=== PATIENT | male | born 1955 | race Caucasian/White ===

== ENCOUNTER → 2018-05-28 12:50 | Outpatient (CLI) | payer OTHER, MEDICAID, SELFPAY ==
[2018-05-28 14:02] LABS: Add Manual Diff / Slide Review NO; Basophils Percent Auto 0.7 % (0-2); Eosinophils Percent Auto 1.6 % (2-4); Hematocrit 53.1 % (41-53); Hemoglobin 17.9 g/dL (13.5-17.5); Mean Corpuscular HGB Conc 33.6 % (30-36); Mean Corpuscular Hemoglobin 34.5 PG (26-34); Mean Corpuscular Volume 102.6 fL (80-100); Neutrophils Absolute Auto 5300 /uL (3000-5900); Neutrophils Percent Auto 60.7 % (50-75); Platelet Count 201 X10^3/uL (150-400); Red Blood Cell Count 5.17 X10^6/uL (4.5-5.9); Red Cell Distribution Width 13.8 % (11.6-14.8); White Blood Cell Count 8.8 X10^3/uL (4.5-11.0)
[2018-05-28 14:22] LABS: Alanine Aminotransferase 25 IU/L (21-72); Albumin Globulin Ratio 1.6 (1.0-2.8); Alkaline Phosphatase 73 U/L (38-126); Amylase 63 U/L (30-110); Aspartate Aminotransferase 29 IU/L (17-59); Bilirubin Total 0.9 mg/dL (0.2-1.3); Blood Urea Nitrogen 12 mg/dL (9-20); Calcium 9.8 mg/dL (8.4-10.2); Carbon Dioxide 16 mmol/L (22-32); Chloride 105 mmol/L (98-107); Cholesterol 202 mg/dL (140-199); Estimated Glomerular Filt Rate > 60.0 mL/min (>60); Globulin 3.1 g/dL (1.7-4.1); Glucose 68 mg/dL (80-110); HDL Cholesterol 89 mg/dL (40-60); HEMOLYSIS < 15 (0-50); LDL Cholesterol Calculated 95 mg/dL (<100); Lipase 119 U/L (23-300); Potassium 4.9 mmol/L (3.4-5.1); Sodium 141 mmol/L (137-145); Total Protein 8.1 g/dL (6.3-8.2); Triglycerides 88 mg/dL (35-150)
[2018-05-28 14:51] LABS: Thyroid Stimulating Hormone 0.88 uIU/mL (0.47-4.68)
[2018-05-28 14:52] LABS: Prostate Specific Antigen Scrn 1.19 ng/mL (0.1-4.0)
[2018-05-28 14:57] LABS: Appearance Urine UA CLEAR; Bilirubin Urine UA 1+ (NEGATIVE); Color Urine UA YELLOW; Glucose Urine UA NEGATIVE (Normal); Ketones Urine UA 1+ (NEGATIVE); Leukocyte Esterase Urine UA NEGATIVE (NEGATIVE); Nitrite Urine UA Negative (Negative); Occult Blood Urine UA NEGATIVE (Negative); Protein Urine UA TRACE (Negative); Specific Gravity Urine UA >=1.030 (1.000-1.035); Urobilinogen Urine UA 0.2 E.U./dL (0.2)
[2018-05-28 16:33] LABS: Ictotest Urine Negative (Negative)
== END ==
PROVIDERS: Family Provider Physician Assistant; Visit Provider Family Medicine
DX: I10 Essential (primary) hypertension (principal); R63.4 Abnormal weight loss; Z86.73 Personal history of transient ischemic attack (TIA), and cerebral infarction without residual deficits; Z51.81 Encounter for therapeutic drug level monitoring; Z12.5 Encounter for screening for malignant neoplasm of prostate
CPT/HCPCS: 36415; 80053; 80061; 81003; 82150; 83690; 84443; 85025; G0103

== ENCOUNTER → 2018-08-19 12:50 | Outpatient (CLI) | payer OTHER, MEDICAID, SELFPAY ==
--- NOTE | 2018-08-19 12:54 | DI.RAD.S_ITS ---
PROCEDURE: XR SHOULDER RT MIN 2V INDICATIONS: R shoulder pain TECHNIQUE: 3 views of the shoulder were acquired. COMPARISON: None. FINDINGS: Bones: No fractures or dislocations. No suspicious bony lesions. Visualized ribs appear intact. Severe AC joint degeneration. Glenohumeral subchondral sclerosis and spurring Soft tissues: No suspicious soft tissue calcifications. IMPRESSION: Right shoulder joint degeneration as above. Dictated by: Corwin Funk M.D. on 08/19/2018 at 16:37 Approved by: Corwin Funk M.D. on 08/19/2018 at 16:38
--- NOTE | 2018-08-19 12:54 | DI.RAD.S_ITS ---
PROCEDURE: XR CHEST 2V INDICATIONS: Pneumonia TECHNIQUE: 2 views of the chest were acquired. COMPARISON: [facility], , CHEST 1 VIEW, 06/23/2016, 16:53. FINDINGS: Surgical changes and devices: None. Lungs and pleura: No pleural effusions or pneumothorax. No definite acute consolidation although the lateral view there is lower lobe opacity, unclear if this represents superimposition of shadows versus bronchopneumonia Mediastinum: Mediastinal contours are normal. Heart size is normal. Bones and chest wall: No suspicious bony abnormalities. Soft tissues appear unremarkable. IMPRESSION: Small opacity projecting in the posterior lower lobe on the lateral view only. This could represent superimposition of shadows however cannot exclude small focus of bronchopneumonia. Followup 2 view chest radiographs after treatment could be performed if clinically indicated. Dictated by: Corwin Funk M.D. on 08/19/2018 at 15:35 Approved by: Corwin Funk M.D. on 08/19/2018 at 15:39
--- NOTE | 2018-08-19 12:54 | DI.RAD.S_ITS ---
PROCEDURE: XR HIP W PEL IF DONE RT 2V INDICATIONS: r hip pain TECHNIQUE: AP pelvis with lateral view(s) of the left and right hip(s). COMPARISON: None. FINDINGS: Bones: No fractures or dislocations. Pelvic ring appears intact. No suspicious bony lesions. Bilateral mild hip degeneration. Soft tissues: The visualized bowel gas pattern is normal. No suspicious soft tissue calcifications. IMPRESSION: Mild bilateral hip joint degeneration. Dictated by: Corwin Funk M.D. on 08/19/2018 at 15:33 Approved by: Corwin Funk M.D. on 08/19/2018 at 15:34
== END ==
PROVIDERS: Family Provider Physician Assistant; PCP Family Medicine; Visit Provider Family Medicine
DX: J18.9 Pneumonia, unspecified organism (principal); M16.0 Bilateral primary osteoarthritis of hip; M19.011 Primary osteoarthritis, right shoulder; M25.511 Pain in right shoulder; M25.551 Pain in right hip; F17.200 Nicotine dependence, unspecified, uncomplicated
CPT/HCPCS: 71046; 73030; 73502

== ENCOUNTER 2018-11-21 15:02 | Emergency (ER) | payer OTHER, MEDICAID, SELFPAY ==
[2018-11-21] VITALS (9 sets, daily range): BP systolic 152–219; BP diastolic 94–103; PULSE 79–91; RESP 15–22; TEMP 37.1; O2SAT 97–100
--- NOTE | 2018-11-21 15:09 | ED.URI ---
HPI - URI/Sore Throat General Chief Complaint: Upper Respiratory Symptoms Stated Complaint: SOB, cough, feels like drowning when laying down Time Seen by Provider: 11/21/18 15:09 Source: patient Mode of arrival: ambulatory Limitations: no limitations History of Present Illness HPI Narrative: Patient is a 63-year-old male with known coronary artery disease here for evaluation of several months of progressively worsening shortness of breath. He states that he feels like he is drowning when he is lying flat. Does have sinus congestion. Some sore throat. No chest pain. Does state that he has swelling in his feet. States he does get short of breath when walking out to the mailbox. Cannot lay flat at night. Related Data Home Medications Medication Instructions Recorded Confirmed aspirin 81 mg tablet,delayed 81 mg PO DAILY 04/20/18 04/20/18 release nicotine 7 mg/24 hr daily 1 patch TRANSDERMAL Q24H 04/20/18 04/20/18 transdermal patch nitroglycerin 0.4 mg sublingual 0.4 mg SL Q5-15M PRN 04/20/18 04/20/18 tablet zolpidem 5 mg tablet 5 mg PO BEDTIME PRN 04/20/18 04/20/18 Previous Rx's Medication Instructions Recorded famotidine 20 mg tablet 20 mg PO DAILY #30 tab 04/20/18 isosorbide dinitrate 30 mg tablet 30 mg PO DAILY #30 tab 04/20/18 metoprolol succinate ER 25 mg 25 mg PO DAILY #30 tab 04/20/18 tablet,extended release 24 hr sucralfate 1 gram tablet 1 gram PO BID #60 tab 04/20/18 Allergies Allergy/AdvReac Type Severity Reaction Status Date / Time NSAIDS (Non-Steroidal Allergy Severe Liver Verified 04/20/18 15:30 Anti-Inflamma damage [NSAIDS (NON-STEROIDAL ANTI-INFLAMMA] Review of Systems Constitutional Denies fever(s) Cardiovascular Denies chest pain, Denies irregular heart rhythm, Reports dyspnea and Reports dyspnea on exertion Respiratory Reports dyspnea, Reports dyspnea on exertion and Denies wheezing Gastrointestinal Gastrointestinal: Denies abdominal pain, Denies nausea and Denies vomiting Musculoskeletal Denies abnormal gait and Denies myalgias Integumentary/Breasts Denies rash Neurologic Denies abnormal gait Hematologic/Lymphatic Comments: Not on anticoagulation Allergic/Immunologic Denies wheezing PFSH Medical History Chronic back pain (Chronic 1990) Hepatitis C (Chronic 1990) PTSD (post-traumatic stress disorder) (Chronic 2000) Ankle pain (Resolved 2000) Fractures (Resolved 1999) Measles (Resolved 1959) Shoulder pain (Resolved 1990) Stroke (Resolved 1993) Surgical History Hx of knee surgery (Resolved ~1989) Family History Father No problems noted. Mother No problems noted. Social History Smoking Status: Current every day smoker Tobacco: How many years used: 50 alcohol intake: current (4 beers per week) Exam Initial Vital Signs Initial Vital Signs: Vital Signs Temperature 98.8 F 11/21/18 15:06 Pulse Rate 88 11/21/18 15:06 Respiratory Rate 22 11/21/18 15:06 Blood Pressure 219/97 H 11/21/18 15:06 Pulse Oximetry 97 11/21/18 15:06 Const General: cooperative, comfortable, well developed, well groomed and No acute distress Orientation: alert, awake and oriented x3 HENMT Head: normal to inspection and normocephalic Resp Effort & Inspection: normal respiratory effort Auscultation: clear to auscultation bilaterally Cardio Rate: regular rate Rhythm: regular rhythm Pulses: radial pulses present GI Inspection: non-distended Palpation: soft, No firm and No tender Skin Lesions: no lesions Rashes: no rashes Neuro General: alert, awake and oriented x3 Extrem General: No no pedal edema and No edema Psych Appearance: grossly normal and well kempt Course Orders Ordered: ED Orders 11/21/18 15:10 XR chest 1V Stat 11/21/18 15:19 EKG-12 Lead Stat 11/21/18 15:42 B Type Natriuretic Peptide Stat Complete Blood Count AUTO DIFF Stat Comprehensive Metabolic Panel Stat Lipase Stat Troponin I Stat 11/21/18 16:46 CT chest w con Stat Sodium Chloride (Normal Saline 0.9%) 500 mls @ 500 mls/hr IV BOLUS ONE Stop: 11/21/18 17:45 Last Admin: 11/21/18 17:08 Dose: 500 mls/hr Vital Signs - 8 hr 11/21/18 15:06 11/21/18 15:30 11/21/18 16:00 Temperature 98.8 F Pulse Rate 88 85 90 Respiratory Rate 22 20 20 Blood Pressure 219/97 H Blood Pressure [Left Arm] 194/99 H 152/103 H Pulse Oximetry 97 100 100 11/21/18 17:27 Temperature Pulse Rate 79 Respiratory Rate 15 Blood Pressure Blood Pressure [Left Arm] 178/94 H Pulse Oximetry 100 MDM - URI/Sore Throat Lab Data Attestation: I reviewed the patient's lab results. Result diagrams: 11/21/18 15:42 11/21/18 15:42 Lab Results 11/21/18 11/21/18 Range/Units 15:42 15:42 WBC 5.5 (4.5-11.0) X10^3/uL RBC 4.60 (4.5-5.9) X10^6/uL Hgb 16.3 (13.5-17.5) g/dL Hct 45.9 (41-53) % MCV 99.8 (80-100) fL MCH 35.4 H (26-34) PG MCHC 35.4 (30-36) % RDW 13.5 (11.6-14.8) % Plt Count 172 (150-400) X10^3/uL Neut % (Auto) 68.2 (50-75) % Lymph % (Auto) 20.1 L (25-40) % [place] % (Auto) 10.2 (3-14) % Eos % (Auto) 1.0 L (2-4) % Baso % (Auto) 0.5 (0-2) % Neut # (Auto) 3700 (7098-7984) /uL Lymph # (Auto) 1100 (1577-5223) /uL [place] # (Auto) 600 (0-900) /uL Eos # (Auto) 100 (0-450) /uL Baso # (Auto) 0 (0-100) /uL Sodium 136 L (137-145) mmol/L Potassium 4.1 (3.4-5.1) mmol/L Chloride 102 (98-107) mmol/L Carbon Dioxide 20 L (22-32) mmol/L BUN 11 (9-20) mg/dL Creatinine 0.70 (0.66-1.25) mg/dL Estimated GFR > 60.0 (>60) mL/min BUN/Creatinine Ratio 15.7 (6-22) Glucose 107 (80-110) mg/dL Calcium 9.7 (8.4-10.2) mg/dL Total Bilirubin 1.0 (0.2-1.3) mg/dL AST 27 (17-59) IU/L ALT 24 (21-72) IU/L Alkaline Phosphatase 71 (38-126) U/L Troponin I < 0.012 (0.01-0.034) ng/mL B-Natriuretic Peptide < 100 (<100) Total Protein 8.4 H (6.3-8.2) g/dL Albumin 4.8 (3.5-5.0) g/dL Globulin 3.6 (1.7-4.1) g/dL Albumin/Globulin Ratio 1.3 (1.0-2.8) Lipase 153 (23-300) U/L Imaging Data Chest x-ray: Radiologist's impression: PROCEDURE: XR CHEST 1V INDICATIONS: SOB TECHNIQUE: One view of the chest was acquired. COMPARISON: [facility], CHEST 1 VIEW, 06/23/2016, 16:53. [facility], XR CHEST 2V, 08/19/2018, 12:31. FINDINGS: Surgical changes and devices: None. Lungs and pleura: Lungs are lucent with mild hyperinflation suggesting COPD. Lungs are clear. No pleural effusions or pneumothorax. Mediastinum: Mediastinal contours appear normal. Heart size is normal. Bones and chest wall: No suspicious bony lesions. Overlying soft tissues appear unremarkable. IMPRESSION: No acute cardiopulmonary disease. Suspect COPD. Dictated by: Medhat Scott M.D. on 11/21/2018 at 15:38 Approved by: Medhat Scott M.D. on 11/21/2018 at 15:39 CT scan - chest: Radiologist's impression: PROCEDURE: CT CHEST W CON INDICATIONS: A 63-year-old man with shortness of breath. TECHNIQUE: After the administration of intravenous contrast, 5 mm thick sections acquired from the pulmonary apices to the posterior costophrenic angles. 7 mm thick coronal and sagittal MIP reformats were acquired. For radiation dose reduction, the following was used: automated exposure control, adjustment of mA and/or kV according to patient size. COMPARISON: [facility], XR CHEST 1V, 11/21/2018, 15:14. FINDINGS: Image quality: Excellent. Lungs and pleura: There is 3 mm nodule in the right upper lobe near the apex (series 3 image 9). There is hyperinflation. No acute air space opacities. No pleural effusions or pneumothorax. Central and peripheral airways are patent and normal in caliber. Mediastinum: Heart size is normal. No pericardial effusion. No mediastinal or hilar adenopathy by size criteria. Thoracic aorta and central pulmonary arteries are normal in size. Esophagus is normal in caliber. No hiatal hernia. Bones and chest wall: No suspicious bony lesions. No vertebral body compression fractures. No axillary or supraclavicular adenopathy by size criteria. Thyroid gland is normal. Abdomen: Visualized upper abdominal solid organs appear normal. Upper abdominal bowel loops are normal in caliber. IMPRESSION: 1. A 3 mm lung nodule in the right apex. Please see followup recommendation. 2. Hyperinflation consistent with COPD. Fleischner Society criteria for SOLID lung nodule followup. Nodule size (mm)Low-risk patientHigh-risk patient?4No follow-up neededFollow-up at 12 mo; if no change, no further follow-up>9-3Hakmgt-mm CT at 12 mo; if no change, no further follow-up needed.Initial follow-up CT at 6-12 mo, then 18-24 mo if no change. >6-8Initial follow-up CT at 6-12 mo, then 18-24 mo if no change. Initial follow-up CT at 3-6 mo, then 9-12 mo and 24 mo if no change. >8Follow-up CT at 3, 9, 24 mo. Or PET and/or biopsy.Same as for low-risk pts. Fleischner Society criteria for SUB-SOLID lung nodule followup. Solitary pure ground-glass nodules5 mm or lessNo followup needed. >5 mm3 mo follow-up CT to confirm persistence. Then annual CT for 3 years. Part-solid nodules3 mo follow-up CT to confirm persistence. If persistent with solid component <5 mm, annual CT for at least 3 years. If solid component is 5 mm or more, biopsy or surgical resection. Consider PET-CT for lesions > 10 mm. Multiple sub-solid nodulesPure ground glass nodules [address] at 2 and 4 years. Pure ground glass nodules >5 mm without dominant lesion. [address] to confirm persistence, then annual followup CT for at least 3 years. Dominant nodule(s) with part-solid or solid component. [address] to confirm persistence. If persistent, consider biopsy or surgical resection, adrienne if lesions have >5 mm solid component. ECG Data Attestation: I personally reviewed and interpreted this ECG as follows: Prior ECG tracings: not available for review Interpretation: Sinus rhythm Ventricular rate is 79 Normal axis Normal QRS Normal QTC No ST T wave changes MDM Narrative Medical decision making narrative: Patient is not hypoxic. No signs of infection. Clinically does not have heart failure. He states that his blood pressure normally runs with systolic in the 170s. 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 Shows no signs of opacities with this. I did inform him about 3 mm pulmonary nodule. I have a high suspicion that his symptoms are related to COPD. Informed him that he needed to contact his primary doctor tomorrow to get in to see her to discuss pulmonary function testing. He was given return precautions. He expressed understanding and agreement with plan. Discharge Plan Departure Patient Disposition: Home Clinical Impression: Shortness of breath, Lung nodule Instructions: DI for Shortness of Breath, How to Manage Shortness of Breath Activity Restrictions/Additional Instructions: I highly recommend that you keep working on quitting smoking. Call your primary care doctor tomorrow to discuss the indications for pulmonary function testing. You do have a pulmonary nodule which does need to be followed up by your primary doctor. Return to the emergency department for any new or worsening symptoms Prescriptions: No Action aspirin [Adult Aspirin Regimen] 81 mg tablet,delayed release (DR/EC) 81 mg PO DAILY RF: 0 nitroglycerin [Nitrostat] 0.4 mg tablet, sublingual 0.4 mg SL Q5-15M PRNRF: 0 zolpidem 5 mg tablet 5 mg PO BEDTIME PRNRF: 0 nicotine [Nicoderm CQ] 7 mg/24 hr patch 24 hour 1 patch Transdermal Q24H RF: 0 famotidine [Pepcid] 20 mg tablet 20 mg PO DAILY Qty: 30 RF: 5 isosorbide dinitrate 30 mg tablet 30 mg PO DAILY Qty: 30 RF: 5 metoprolol succinate 25 mg tablet extended release 24 hr 25 mg PO DAILY Qty: 30 RF: 5 sucralfate 1 gram tablet 1 gram PO BID Qty: 60 RF: 0
--- NOTE | 2018-11-21 15:47 | PC.NURSE ---
reports shortness of breath, dyspneic on exertion. hx of mi with stents, sxs worsen when laying down, better sitting up, sxs for couple of months. cutting down with smoking now 4 sticks a day, with sinus congestion and sorethroat.
[2018-11-21 15:58] LABS: Add Manual Diff / Slide Review NO; Basophils Absolute Auto 0 /uL (0-100); Basophils Percent Auto 0.5 % (0-2); Eosinophils Absolute Auto 100 /uL (0-450); Hematocrit 45.9 % (41-53); Hemoglobin 16.3 g/dL (13.5-17.5); Lymphocytes Absolute Auto 1100 /uL (1100-4500); Lymphocytes Percent Auto 20.1 % (25-40); Mean Corpuscular HGB Conc 35.4 % (30-36); Mean Corpuscular Hemoglobin 35.4 PG (26-34); Mean Corpuscular Volume 99.8 fL (80-100); Monocytes Absolute Auto 600 /uL (0-900); Monocytes Percent Auto 10.2 % (3-14); Neutrophils Absolute Auto 3700 /uL (1500-7000); Neutrophils Percent Auto 68.2 % (50-75); Platelet Count 172 X10^3/uL (150-400); Red Cell Distribution Width 13.5 % (11.6-14.8); White Blood Cell Count 5.5 X10^3/uL (4.5-11.0)
[2018-11-21 16:01] LABS: Alanine Aminotransferase 24 IU/L (21-72); Albumin 4.8 g/dL (3.5-5.0); Albumin Globulin Ratio 1.3 (1.0-2.8); Alkaline Phosphatase 71 U/L (38-126); Aspartate Aminotransferase 27 IU/L (17-59); BUN Creatinine Ratio 15.7 (6-22); Blood Urea Nitrogen 11 mg/dL (9-20); Calcium 9.7 mg/dL (8.4-10.2); Carbon Dioxide 20 mmol/L (22-32); Chloride 102 mmol/L (98-107); Estimated Glomerular Filt Rate > 60.0 mL/min (>60); Globulin 3.6 g/dL (1.7-4.1); Glucose 107 mg/dL (80-110); HEMOLYSIS < 15 (0-50); Lipase 153 U/L (23-300); Potassium 4.1 mmol/L (3.4-5.1); Sodium 136 mmol/L (137-145); Total Protein 8.4 g/dL (6.3-8.2)
[2018-11-21 16:17] LABS: Troponin I < 0.012 ng/mL (0.01-0.034)
[2018-11-21 16:27] LABS: B Type Natriuretic Peptide < 100 (<100)
--- NOTE | 2018-11-21 16:46 | DI.CT.S_ITS ---
PROCEDURE: CT CHEST W CON INDICATIONS: A 63-year-old man with shortness of breath. TECHNIQUE: After the administration of intravenous contrast, 5 mm thick sections acquired from the pulmonary apices to the posterior costophrenic angles. 7 mm thick coronal and sagittal MIP reformats were acquired. For radiation dose reduction, the following was used: automated exposure control, adjustment of mA and/or kV according to patient size. COMPARISON: [facility], CR, XR CHEST 1V, 11/21/2018, 15:14. FINDINGS: Image quality: Excellent. Lungs and pleura: There is 3 mm nodule in the right upper lobe near the apex (series 3 image 9). There is hyperinflation. No acute air space opacities. No pleural effusions or pneumothorax. Central and peripheral airways are patent and normal in caliber. Mediastinum: Heart size is normal. No pericardial effusion. No mediastinal or hilar adenopathy by size criteria. Thoracic aorta and central pulmonary arteries are normal in size. Esophagus is normal in caliber. No hiatal hernia. Bones and chest wall: No suspicious bony lesions. No vertebral body compression fractures. No axillary or supraclavicular adenopathy by size criteria. Thyroid gland is normal. Abdomen: Visualized upper abdominal solid organs appear normal. Upper abdominal bowel loops are normal in caliber. IMPRESSION: 1. A 3 mm lung nodule in the right apex. Please see followup recommendation. 2. Hyperinflation consistent with COPD. Fleischner Society criteria for SOLID lung nodule followup. Nodule size (mm)Low-risk patientHigh-risk patient?4No follow-up neededFollow-up at 12 mo; if no change, no further follow-up>5-5Plobbz-ib CT at 12 mo; if no change, no further follow-up needed.Initial follow-up CT at 6-12 mo, then 18-24 mo if no change. >6-8Initial follow-up CT at 6-12 mo, then 18-24 mo if no change. Initial follow-up CT at 3-6 mo, then 9-12 mo and 24 mo if no change. >8Follow-up CT at 3, 9, 24 mo. Or PET and/or biopsy.Same as for low-risk pts. Fleischner Society criteria for SUB-SOLID lung nodule followup. Solitary pure ground-glass nodules5 mm or lessNo followup needed. >5 mm3 mo follow-up CT to confirm persistence. Then annual CT for 3 years. Part-solid nodules3 mo follow-up CT to confirm persistence. If persistent with solid component <5 mm, annual CT for at least 3 years. If solid component is 5 mm or more, biopsy or surgical resection. Consider PET-CT for lesions > 10 mm. Multiple sub-solid nodulesPure ground glass nodules [address] at 2 and 4 years. Pure ground glass nodules >5 mm without dominant lesion. [address] to confirm persistence, then annual followup CT for at least 3 years. Dominant nodule(s) with part-solid or solid component. [address] to confirm persistence. If persistent, consider biopsy or surgical resection, adrienne if lesions have >5 mm solid component. Dictated by: Medhat Scott M.D. on 11/21/2018 at 17:20 Approved by: Medhat Scott M.D. on 11/21/2018 at 17:26
[2018-11-21] MEDS: SODIUM CHLORIDE 0.9% 500 ML IV (17:08)
== END 2018-11-21 18:00 | disposition home or self-care (01) ==
PROVIDERS: Emergency Provider Emergency Medicine; Family Provider Physician Assistant; PCP Family Medicine
DX: R06.09 Other forms of dyspnea (principal); R91.1 Solitary pulmonary nodule
CPT/HCPCS: 36591; 71045; 71260; 80053; 83690; 83880; 84484; 85025; 93005; 96360; 99283; 99285; Q9967

== ENCOUNTER 2018-11-22 14:50 | Emergency (ER) | payer OTHER, MEDICAID, SELFPAY ==
[2018-11-22 15:02] VITALS: BP 163/106; PULSE 110; RESP 26; TEMP 37.1; O2SAT 100
[2018-11-22 15:24] LABS: Add Manual Diff / Slide Review NO; Basophils Absolute Auto 0 /uL (0-100); Basophils Percent Auto 0.6 % (0-2); Eosinophils Absolute Auto 0 /uL (0-450); Eosinophils Percent Auto 0.4 % (2-4); Hematocrit 44.3 % (41-53); Hemoglobin 15.2 g/dL (13.5-17.5); Lymphocytes Absolute Auto 1200 /uL (1100-4500); Mean Corpuscular HGB Conc 34.3 % (30-36); Mean Corpuscular Hemoglobin 34.6 PG (26-34); Mean Corpuscular Volume 100.8 fL (80-100); Monocytes Absolute Auto 700 /uL (0-900); Monocytes Percent Auto 8.3 % (3-14); Neutrophils Absolute Auto 6100 /uL (1500-7000); Neutrophils Percent Auto 75.7 % (50-75); Platelet Count 164 X10^3/uL (150-400); Red Cell Distribution Width 13.4 % (11.6-14.8); White Blood Cell Count 8.1 X10^3/uL (4.5-11.0)
[2018-11-22 15:46] LABS: Alanine Aminotransferase 28 IU/L (21-72); Albumin 4.8 g/dL (3.5-5.0); Albumin Globulin Ratio 1.5 (1.0-2.8); Alkaline Phosphatase 62 U/L (38-126); Aspartate Aminotransferase 31 IU/L (17-59); BUN Creatinine Ratio 8.8 (6-22); Bilirubin Total 0.7 mg/dL (0.2-1.3); Blood Urea Nitrogen 7 mg/dL (9-20); Calcium 9.3 mg/dL (8.4-10.2); Carbon Dioxide 17 mmol/L (22-32); Chloride 105 mmol/L (98-107); Creatine Kinase 58 U/L (55-170); Estimated Glomerular Filt Rate > 60.0 mL/min (>60); Globulin 3.2 g/dL (1.7-4.1); Glucose 94 mg/dL (80-110); HEMOLYSIS < 15 (0-50); Potassium 4.3 mmol/L (3.4-5.1); Sodium 136 mmol/L (137-145)
[2018-11-22 16:02] VITALS: BP 155/94; PULSE 96; RESP 20; O2SAT 98
[2018-11-22 16:02] LABS: Troponin I < 0.012 ng/mL (0.01-0.034)
--- NOTE | 2018-11-22 17:05 | ED_ITS ---
HPI - Chest Pain <NISHANT Pinto - Last Filed: 11/22/18 21:34> General Chief Complaint: Chest Pain Stated Complaint: CHEST PAIN/SHORTNESS OF BREATH Time Seen by Provider: 11/22/18 15:01 Source: patient Mode of arrival: ambulatory Limitations: no limitations History of Present Illness HPI narrative: 63-year-old male with history of coronary artery disease and everyday smoker here for shortness of breath and chest pressure over the past several days. He was seen in the emergency room for this yesterday and had negative cardiac workup. Chest x-ray was suggestive of findings consistent with COPD. He followed up with his primary care provider today who discussed with Cardiology and recommended return emergency room to obtain a repeat troponin. He still reports having chest pressure and shortness of breath. Denies chest pain at this time. He does report increased shortness of breath with activity. He denies any fevers. He has had a cough over the past couple of months. He is ambulatory. MD complaint: other Related Data Home Medications Medication Instructions Recorded Confirmed aspirin 81 mg tablet,delayed 81 mg PO DAILY 04/20/18 11/22/18 release nitroglycerin 0.4 mg sublingual 0.4 mg SL Q5-15M PRN 04/20/18 11/22/18 tablet zolpidem 5 mg tablet 5 mg PO BEDTIME PRN 04/20/18 11/22/18 famotidine 20 mg tablet 20 mg PO DAILY tab 11/22/18 11/22/18 Previous Rx's Medication Instructions Recorded isosorbide dinitrate 30 mg tablet 30 mg PO DAILY #30 tab 04/20/18 metoprolol succinate ER 25 mg 25 mg PO DAILY #30 tab 04/20/18 tablet,extended release 24 hr albuterol sulfate 2 puff INHALATION Q4-6H PRN #8 gram 11/22/18 prednisone 40 mg PO DAILY #10 tab 11/22/18 tiotropium bromide 1 cap INHALATION DAILY #30 11/22/18 inhalation Allergies Allergy/AdvReac Type Severity Reaction Status Date / Time NSAIDS (Non-Steroidal Allergy Severe Liver Verified 11/22/18 13:30 Anti-Inflamma damage [NSAIDS (NON-STEROIDAL ANTI-INFLAMMA] Review of Systems <NISHANT Pinto - Last Filed: 11/22/18 21:34> Constitutional Denies chills, Denies fever(s), Denies lethargy and Denies weakness Eyes Denies change in vision, Denies eye discharge, Denies irritation and Denies loss of vision ENT Ears, Nose, Mouth, and Throat: Denies throat swelling Cardiovascular Denies chest pain, Denies irregular heart rhythm, Denies lightheadedness, Denies palpitations, Reports dyspnea and Denies orthopnea Comments: Chest pressure Respiratory Reports dyspnea and Denies wheezing Gastrointestinal Gastrointestinal: Denies abdominal pain, Denies change in bowel habits, Denies diarrhea, Denies nausea and Denies vomiting Musculoskeletal Denies back pain, Denies muscle weakness, Denies numbness and Denies tingling Integumentary/Breasts Denies pruritus, Denies erythema, Denies rash and Denies wounds Neurologic Denies confusion, Denies loss of vision, Denies numbness, Denies tingling and Denies weakness Psychiatric Denies anxiety, Denies confusion, Denies depression, Denies homicidal ideation and Denies suicidal ideation Endocrine Denies palpitations Hematologic/Lymphatic Denies easy bruising Allergic/Immunologic Denies urticaria, Denies throat swelling and Denies wheezing PFSH <NISHANT Pinto - Last Filed: 11/22/18 21:34> Medical History Chronic back pain (Chronic 1990) Hepatitis C (Chronic 1990) PTSD (post-traumatic stress disorder) (Chronic 2000) Ankle pain (Resolved 2000) Fractures (Resolved 1999) Measles (Resolved 1959) Shoulder pain (Resolved 1990) Stroke (Resolved 1993) Surgical History Hx of knee surgery (Resolved ~1989) Family History Father No problems noted. Mother No problems noted. Social History Smoking Status: Current every day smoker Tobacco: How many years used: 50 alcohol intake: current (4 beers per week) Exam <NISHANT Pinto - Last Filed: 11/22/18 21:34> Initial Vital Signs Initial Vital Signs: Vital Signs Temperature 98.8 F 11/22/18 15:02 Pulse Rate 110 H 11/22/18 15:02 Respiratory Rate 26 H 11/22/18 15:02 Blood Pressure 163/106 H 11/22/18 15:02 Pulse Oximetry 100 11/22/18 15:02 Const General: cooperative and well developed Nutritional Appearance: well nourished Orientation: alert, awake, oriented x3 and not confused HENMT Mouth: oral mucosae normal and moist mucous membranes Eyes Conjunctivae: conjunctivae normal Sclera: sclerae normal Pupils: PERRL EOM: EOM intact bilaterally Chest Chest: normal inspection of the chest Resp Effort & Inspection: normal respiratory effort, able to speak in complete sentences, no respiratory distress and no use of accessory muscles Auscultation: clear to auscultation bilaterally, no rales, no rhonchi and no wheezes Cardio Rate: regular rate Rhythm: regular rhythm Heart Sounds: no click, no gallops, no murmurs and no rubs Pulses: normal peripheral pulses GI Inspection: non-distended Palpation: soft, no hepatosplenomegaly, No guarding, No pulsatile mass and No tender Auscultation: normal bowel sounds Skin General: no rashes or lesions noted, No jaundice and No petechiae Neuro General: alert, oriented x3, gait normal and no focal motor deficits Speech: speech normal <Keke Dee DO - Last Filed: 12/01/18 16:37> Initial Vital Signs Initial Vital Signs: Vital Signs Temperature 98.8 F 11/22/18 15:02 Pulse Rate 110 H 11/22/18 15:02 Respiratory Rate 26 H 11/22/18 15:02 Blood Pressure 163/106 H 11/22/18 15:02 Pulse Oximetry 100 11/22/18 15:02 Course <NISHANT Pinto - Last Filed: 11/22/18 21:34> Orders Ordered: ED Orders 11/22/18 15:10 Complete Blood Count AUTO DIFF Stat Comprehensive Metabolic Panel Stat Troponin & CK Cardiac Panel Stat Vital Signs - 8 hr 11/22/18 15:02 11/22/18 16:02 11/22/18 17:14 Temperature 98.8 F Pulse Rate 110 H 96 H 98 H Respiratory Rate 26 H 20 20 Blood Pressure 163/106 H 149/92 H Blood Pressure [Left Arm] 155/94 H Pulse Oximetry 100 98 98 <DO Claudine Doss Last Filed: 12/01/18 16:37> Orders Ordered: ED Orders 11/22/18 15:10 Complete Blood Count AUTO DIFF Stat Comprehensive Metabolic Panel Stat Troponin & CK Cardiac Panel Stat Vital Signs - 8 hr 11/22/18 15:02 11/22/18 16:02 11/22/18 17:14 Temperature 98.8 F Pulse Rate 110 H 96 H 98 H Respiratory Rate 26 H 20 20 Blood Pressure 163/106 H 149/92 H Blood Pressure [Left Arm] 155/94 H Pulse Oximetry 100 98 98 MDM - Chest Pain <NISHANT Pinto - Last Filed: 11/22/18 21:34> Lab Data Result diagrams: 11/22/18 15:10 11/22/18 15:10 Lab Results 11/22/18 11/22/18 Range/Units 15:10 15:10 WBC 8.1 (4.5-11.0) X10^3/uL RBC 4.40 L (4.5-5.9) X10^6/uL Hgb 15.2 (13.5-17.5) g/dL Hct 44.3 (41-53) % MCV 100.8 H (80-100) fL MCH 34.6 H (26-34) PG MCHC 34.3 (30-36) % RDW 13.4 (11.6-14.8) % Plt Count 164 (150-400) X10^3/uL Neut % (Auto) 75.7 H (50-75) % Lymph % (Auto) 15.0 L (25-40) % Cavalier % (Auto) 8.3 (3-14) % Eos % (Auto) 0.4 L (2-4) % Baso % (Auto) 0.6 (0-2) % Neut # (Auto) 6100 (8882-1568) /uL Lymph # (Auto) 1200 (2477-0867) /uL Cavalier # (Auto) 700 (0-900) /uL Eos # (Auto) 0 (0-450) /uL Baso # (Auto) 0 (0-100) /uL Sodium 136 L (137-145) mmol/L Potassium 4.3 (3.4-5.1) mmol/L Chloride 105 (98-107) mmol/L Carbon Dioxide 17 L (22-32) mmol/L BUN 7 L (9-20) mg/dL Creatinine 0.80 (0.66-1.25) mg/dL Estimated GFR > 60.0 (>60) mL/min BUN/Creatinine Ratio 8.8 (6-22) Glucose 94 (80-110) mg/dL Calcium 9.3 (8.4-10.2) mg/dL Total Bilirubin 0.7 (0.2-1.3) mg/dL AST 31 (17-59) IU/L ALT 28 (21-72) IU/L Alkaline Phosphatase 62 (38-126) U/L Total Creatine Kinase 58 (55-170) U/L CK-MB (CK-2) TNP CK-MB (CK-2) Rel Index TNP Troponin I < 0.012 (0.01-0.034) ng/mL Total Protein 8.0 (6.3-8.2) g/dL Albumin 4.8 (3.5-5.0) g/dL Globulin 3.2 (1.7-4.1) g/dL Albumin/Globulin Ratio 1.5 (1.0-2.8) ECG Data Interpretation: EKG shows sinus tachycardia with no ST elevation or depression. No ectopy. Ventricular rate of 105. Pr interval of 134. QTC of 377. MDM Narrative Medical decision making narrative: CBC and Chem panel were obtained were unr emarkable. Troponin was obtained was negative. EKG shows sinus tachycardia with no ST elevation or depression. No ectopy. He was treated for COPD exacerbation with Spiriva inhaler, albuterol inhaler and short course of prednisone. Follow up with primary care provider. Follow up with Cardiology. Return emergency room for any worsening symptoms. <Keke Dee DO - Last Filed: 12/01/18 16:37> Lab Data Lab Results 11/22/18 11/22/18 Range/Units 15:10 15:10 WBC 8.1 (4.5-11.0) X10^3/uL RBC 4.40 L (4.5-5.9) X10^6/uL Hgb 15.2 (13.5-17.5) g/dL Hct 44.3 (41-53) % MCV 100.8 H (80-100) fL MCH 34.6 H (26-34) PG MCHC 34.3 (30-36) % RDW 13.4 (11.6-14.8) % Plt Count 164 (150-400) X10^3/uL Neut % (Auto) 75.7 H (50-75) % Lymph % (Auto) 15.0 L (25-40) % Cavalier % (Auto) 8.3 (3-14) % Eos % (Auto) 0.4 L (2-4) % Baso % (Auto) 0.6 (0-2) % Neut # (Auto) 6100 (1636-6381) /uL Lymph # (Auto) 1200 (2682-8517) /uL Cavalier # (Auto) 700 (0-900) /uL Eos # (Auto) 0 (0-450) /uL Baso # (Auto) 0 (0-100) /uL Sodium 136 L (137-145) mmol/L Potassium 4.3 (3.4-5.1) mmol/L Chloride 105 (98-107) mmol/L Carbon Dioxide 17 L (22-32) mmol/L BUN 7 L (9-20) mg/dL Creatinine 0.80 (0.66-1.25) mg/dL Estimated GFR > 60.0 (>60) mL/min BUN/Creatinine Ratio 8.8 (6-22) Glucose 94 (80-110) mg/dL Calcium 9.3 (8.4-10.2) mg/dL Total Bilirubin 0.7 (0.2-1.3) mg/dL AST 31 (17-59) IU/L ALT 28 (21-72) IU/L Alkaline Phosphatase 62 (38-126) U/L Total Creatine Kinase 58 (55-170) U/L CK-MB (CK-2) TNP CK-MB (CK-2) Rel Index TNP Troponin I < 0.012 (0.01-0.034) ng/mL Total Protein 8.0 (6.3-8.2) g/dL Albumin 4.8 (3.5-5.0) g/dL Globulin 3.2 (1.7-4.1) g/dL Albumin/Globulin Ratio 1.5 (1.0-2.8) Discharge Plan Departure Patient Disposition: Home Clinical Impression: Acute dyspnea Discharge Date/Time: 11/22/18 17:16 Interventions: ED Discharge Assessment Last Done: 11/22/18 17:14 Activity Restrictions/Additional Instructions: Laboratory results today were unremarkable. Cardiac enzymes were negative. Signs and symptoms presents as COPD exacerbation. Prescriptions are provided for inhalers and a short course of steroids to help with inflammation use as directed. Follow up with her primary care provider. Follow up with Cardiology. Return emergency room for any worsening symptoms. Prescriptions: New tiotropium bromide 18 mcg capsule, w/inhalation device 1 cap INHALATION DAILY Qty: 30 RF: 0 albuterol sulfate 90 mcg/actuation HFA aerosol inhaler 2 puff INHALATION Q4-6H PRN (Reason: shortness of breath) Qty: 8 RF: 0 prednisone 20 mg tablet 40 mg PO DAILY Qty: 10 RF: 0 No Action aspirin [Adult Aspirin Regimen] 81 mg tablet,delayed release (DR/EC) 81 mg PO DAILY RF: 0 nitroglycerin [Nitrostat] 0.4 mg tablet, sublingual 0.4 mg SL Q5-15M PRN (Reason: Chest Pain) RF: 0 zolpidem 5 mg tablet 5 mg PO BEDTIME PRN (Reason: Insomnia) RF: 0 isosorbide dinitrate 30 mg tablet 30 mg PO DAILY Qty: 30 RF: 5 metoprolol succinate 25 mg tablet extended release 24 hr 25 mg PO DAILY Qty: 30 RF: 5 famotidine [Pepcid] 20 mg tablet 20 mg PO DAILY RF: 0 Referrals: Kay Villagomez DO [Primary Care Provider] - <Keke Dee DO - Last Filed: 12/01/18 16:37> [facility] I was immediately available in the department for consultation. This document ation has been reviewed and I agree with assessment and plan. Supervised by Keke Dee DO
[2018-11-22 17:14] VITALS: BP 149/92; PULSE 98; RESP 20; O2SAT 98
== END 2018-11-22 17:16 | disposition home or self-care (01) ==
PROVIDERS: Emergency Provider Nurse Practitioner Family; Family Provider Physician Assistant; PCP Family Medicine
DX: R06.00 Dyspnea, unspecified (principal)
CPT/HCPCS: 36591; 80053; 82550; 84484; 85025; 93005; 99283; 99284